=== PATIENT | female | born 1990 | race Two or more races ===

== ENCOUNTER → 2022-05-25 14:06 | Outpatient (BNVA) | payer OTHER, SELFPAY | PROVIDERS: PCP Internal Medicine; Visit Provider Advanced Practice Midwife | DX: O09.299 Supervision of pregnancy with other poor reproductive or obstetric history, unspecified trimester (principal); Z98.891 History of uterine scar from previous surgery; Z32.01 Encounter for pregnancy test, result positive | CPT/HCPCS: 81025; 99202 ==

== ENCOUNTER 2022-06-10 11:05 | Outpatient (REF) | payer OTHER, SELFPAY ==
--- NOTE | ~2022-06-10 | US_ITS ---
EXAMINATION: US OBSTETRICAL ULTRASOUND CLINICAL INFORMATION: Positive test. COMPARISON: None. LMP: 03/28/2022. Gestational age by maternal dates is 10 weeks 4 days. Estimated date of delivery by maternal dates is 01/02/2023. TECHNIQUE: Transabdominal first trimester OB ultrasound. FINDINGS: There is a viable intrauterine twin gestation, diamniotic dichorionic. Baby A on the maternal right: [place]-rump length measures 3.3 cm suggesting gestational age of 10 weeks 1 day with estimated date of delivery of 01/05/2023. heart rate is 170 bpm. There is a yolk sac. Baby B on the maternal left: [place]-rump length measures 3.2 cm suggesting gestational age of 10 weeks 1 day with estimated date of delivery of 01/05/2023. heart rate is 165 bpm. There is a yolk sac. The right maternal ovary measures 3.4 x 1.9 x 2.9 cm. There is a 2.5 x 1.7 x 2 cm right ovarian cyst probably representing a corpus luteum. The left maternal ovary measures 3.5 x 1.5 x 1.3 cm. There is no fluid in the maternal pelvis. US/US OB <= 14 wk fetus add gest IMPRESSION: Intrauterine twin gestation with gestational age 10 weeks 1 day and estimated date of delivery of 01/05/2023.
--- NOTE | ~2022-06-10 | US_ITS ---
EXAMINATION: US OBSTETRICAL ULTRASOUND CLINICAL INFORMATION: Positive test. COMPARISON: None. LMP: 03/28/2022. Gestational age by maternal dates is 10 weeks 4 days. Estimated date of delivery by maternal dates is 01/02/2023. TECHNIQUE: Transabdominal first trimester OB ultrasound. FINDINGS: There is a viable intrauterine twin gestation, diamniotic dichorionic. Baby A on the maternal right: [place]-rump length measures 3.3 cm suggesting gestational age of 10 weeks 1 day with estimated date of delivery of 01/05/2023. heart rate is 170 bpm. There is a yolk sac. Baby B on the maternal left: [place]-rump length measures 3.2 cm suggesting gestational age of 10 weeks 1 day with estimated date of delivery of 01/05/2023. heart rate is 165 bpm. There is a yolk sac. The right maternal ovary measures 3.4 x 1.9 x 2.9 cm. There is a 2.5 x 1.7 x 2 cm right ovarian cyst probably representing a corpus luteum. The left maternal ovary measures 3.5 x 1.5 x 1.3 cm. There is no fluid in the maternal pelvis. US/US OB <= 14 weeks fetus IMPRESSION: Intrauterine twin gestation with gestational age 10 weeks 1 day and estimated date of delivery of 01/05/2023.
== END 2022-06-10 11:06 | disposition home or self-care (01) ==
LOC: HO.US 11:05
PROVIDERS: Visit Provider Advanced Practice Midwife
DX: Z34.91 Encounter for supervision of normal pregnancy, unspecified, first trimester (principal); Z3A.10 10 weeks gestation of pregnancy
CPT/HCPCS: 76801; 76802